=== PATIENT | male | born 1970 | race Caucasian/White ===

== ENCOUNTER 2016-06-24 10:24 | Emergency (ER) | payer MEDICAID ==
[~2016-06-24] VITALS: Wt 65.0 kg
[2016-06-24] MEDS ORDERED: KETOROLAC 30 MG INJ IM STA (12:14)
[2016-06-24] MEDS ORDERED: OXYCODONE/ACETAMINOPHEN (5/325) TAB PO ONE (12:30)
[2016-06-24] MEDS ORDERED: MUPIROCIN 2% 22 GM OINT TOP ONE (12:30)
[2016-06-24] MEDS ORDERED: IBUP-1542 PO (12:34)
[2016-06-24] MEDS ORDERED: OXYC-279 PO (12:34)
--- NOTE | 2016-06-24 12:36 | ERD ---
ER Documentation Chief Complaint Date/Time DATE: 06/24/16 TIME: 12:35 Chief Complaint right foot pain from injury about 1 month ago. no trauma. HPI 45-year-old man status post ORIF of the left first metatarsal month ago presents with pain to the surgical site. He denies skin redness or purulent discharge, no fevers or chills, no headache or blurry vision, no chest pain or shortness of breath. Patient ran out of his analgesic medication. He was also seen and evaluated [facility], splint was applied and he was discharged to continue outpatient management. ROS All systems reviewed and are negative except as per history of present illness. Medications Home Meds Active Scripts Oxycodone HCl/Acetaminophen (Percocet 5-325 mg Tablet) 1 Each Tablet, 1 EACH PO TID for PAIN, #12 TAB Prov:ANGELA ROMAN MD 06/24/16 Ibuprofen* (Motrin*) 600 Mg Tab, 600 MG PO Q8 Y for PAIN AND/OR INFLAMMATION, # 30 TAB Prov:ANGELA ROMAN MD 06/24/16 Allergies Allergies: Coded Allergies: No Known Allergy (Unverified , 05/19/16) PMhx/Soc Status post ORIF of the left lower extremity secondary to left first metatarsal shaft open fracture and extensor hallucis longus and brevis laceration as well as abductor hallucis brevis laceration about a month ago. History of Surgery: Yes (S/P L FOOT LACERATION REPAIR 05-19-16) Anesthesia Reaction: No Hx Neurological Disorder: No Hx Respiratory Disorders: No Hx Cardiac Disorders: No Hx Psychiatric Problems: No Hx Miscellaneous Medical Probl: Yes (ETOH ABUSE) Hx Alcohol Use: Yes (12 beers a week, last beer 05/18/16) Hx Substance Use: Yes (once a week, last used 05/14/16) Hx Tobacco Use: No Smoking Status: Never smoker FmHx Family History: No diabetes Physical Exam Vitals Vital Signs Date Time Temp Pulse Resp B/P Pulse Ox O2 Delivery O2 Flow Rate FiO2 06/24/16 13:20 98.1 76 20 132/78 100 06/24/16 10:31 98.5 100 20 136/81 100 Physical Exam GENERAL: Well-developed, well-nourished, well-hydrated, in no apparent distress , looks nontoxic in appearance HEENT: Moist mucous membranes, pink conjunctiva, no cervical spine tenderness or step-off deformities, no goiter, no jaundice or icterus, extraocular movements intact without pain. No submandibular induration, and no pharyngeal erythema NEURO: Alert and oriented 3, cranial nerves II through XII intact bilaterally, pupils equal round reactive to light, no focal deficits or facial asymmetry, sensation intact distally Strength 5/5 in upper and lower extremities bilaterally CARDIAC: Regular rate and rhythm, no murmurs rubs or gallops LUNGS: Clear bilaterally no wheezing crackles or stridor ABDOMEN: Soft nontender, no guarding, no rigidity, no rebound, no psoas sign no obturator sign. Normoactive bowel sounds SKIN: Warm and dry to touch, there is a dry surgical incision across the dorsal aspect of the left foot, no skin erythema or induration, no purulent discharge EXTREMITIES: No clubbing cyanosis or edema, calves are bilaterally symmetrical, no Homans sign, no popliteal cord sign. Distal pulses equal and bilateral PSYCH: Normal affect without agitation or irritability Results 24 hrs Current Medications Medications (Trade) Dose Ordered Sig/Brandon Route PRN Reason Start Time Stop Time Status Last Admin Dose Admin Ketorolac Tromethamine (Toradol) 30 mg ONCE STAT IM 06/24/16 12:14 06/24/16 12:16 DC 06/24/16 12:24 Oxycodone/ Acetaminophen (Percocet (5/ 325)) 1 tab ONCE ONCE PO 06/24/16 12:30 06/24/16 12:31 DC Mupirocin (Bactroban) 1 applic ONCE ONCE TOP 06/24/16 12:30 06/24/16 12:31 DC 06/24/16 12:41 Procedures/MDM Splint was removed and left lower extremity was examined by me. I applied mupirocin 2% antibiotic ointment to this overall well healing incision, patient was also given Toradol 30 mg intramuscular injection. Left lower extremity splint was reapplied and secured with Joseph elastic bandage. Splint Assessment: Neurovascularly intact post splint placement with good fit. Patient will follow up with his orthopedic surgeon and was given analgesic prescriptions by me to use as an outpatient. Patient feels much better at this time, and vital signs are normal, symptoms have improved. I did give strict instructions to return to the ED if symptoms continue or worsen, patient will otherwise follow-up with primary care physician. Patient understood instructions and agreed to plan. Departure Diagnosis: Primary Impression: Post-operative pain Condition: Good Patient Instructions: Post Op Wound Check, Pain Referrals: BUD [facility]BRIDE MD [facility] ANGELA ROMAN MD Jun 24, 2016 12:36
[2016-06-24 13:20] VITALS: BP 132/78; PULSE 76; RESP 20; TEMP 98.1
== END 2016-06-24 13:21 | disposition home or self-care (01) ==
LOC: FTE 10:24
DX: G89.18 Other acute postprocedural pain (principal)
CPT/HCPCS: J1885; Z7610; 96372